=== PATIENT | female | born 1940 | race Caucasian/White ===

== ENCOUNTER 2020-08-13 10:04 | Outpatient (REF) | payer MEDICARE, OTHER, SELFPAY ==
--- NOTE | 2020-08-13 | US_ITS ---
EXAMINATION: US EXTRACRANIAL CAROTID DUPLEX, BILATERAL CLINICAL INFORMATION: This is an 80-year-old female with history of hypertension. Carotid artery disease. COMPARISON: Comparison is made to a previous study dated 06/27/2019 which demonstrated 0-49% right internal carotid artery stenosis and 50-79% left internal carotid artery stenosis. It also showed retrograde flow in the left vertebral artery. TECHNIQUE: Real-time ultrasound and Doppler techniques (integrating B-mode 2-D vascular images, Doppler spectral analysis and color-flow Doppler imaging) were utilized to interrogate the extracranial carotid arteries, the vertebral arteries and proximal subclavian arteries bilaterally. The degree of stenosis is determined by criteria similar to NASCET. FINDINGS: Right Side: 1. There is minimal atherosclerotic plaque seen in the bifurcation/proximal ICA region. 2. The common carotid artery PSV proximally is 130 cm/s and distally 116 cm/s. 3. The proximal internal carotid artery velocities are 109 cm/s systolic and 18 cm/s diastolic. 4. The proximal external carotid artery PSV is 135 cm/s. This does not represent a hemodynamically significant stenosis. 5. The vertebral artery shows antegrade flow. 6. The subclavian artery waveforms are stenotic with an elevated velocity of 335 cm/s. Left Side: 1. There is minimal atherosclerotic plaque seen in the bifurcation/proximal ICA region. 2. The common carotid artery PSV proximally is 104 cm/s and distally 101 cm/s. 3. The proximal internal carotid artery velocities are 151 cm/s systolic and 31 cm/s diastolic. 4. The proximal external carotid artery PSV is 360 cm/s.. This is consistent with hemodynamically significant stenosis. 5. The vertebral artery shows antegrade flow. 6. The subclavian artery waveforms are mildly stenotic but the velocity is still within the normal limits. US/US carotid duplex BI IMPRESSION: 1. RIGHT: Minimal, non-hemodynamically significant stenosis of the proximal right internal carotid artery corresponding to a 0-49% stenosis by velocity criteria. The category severity of disease appears unchanged. 2. LEFT: Moderate, hemodynamically significant stenosis of the proximal left internal carotid artery corresponding to a 50-79% stenosis by velocity criteria. The category severity of disease appears unchanged. 3. There is no change in the stenotic left external carotid artery. 4. There is a hemodynamically significant stenosis in the right subclavian artery which now is apparent. However, the vertebral arteries appear antegrade on the current study. Previously, there was retrograde flow in the left vertebral artery.
== END 2020-08-13 10:05 | disposition home or self-care (01) ==
LOC: HO.US 10:04
PROVIDERS: PCP Internal Medicine; Visit Provider Surgery Vascular Surgery
DX: I65.23 Occlusion and stenosis of bilateral carotid arteries (principal)
CPT/HCPCS: 93880

== ENCOUNTER → 2020-08-27 10:40 | Outpatient (BNVA) | payer MEDICARE, OTHER, SELFPAY | PROVIDERS: PCP Internal Medicine; Visit Provider Surgery Vascular Surgery | DX: I65.23 Occlusion and stenosis of bilateral carotid arteries (principal); I83.11 Varicose veins of right lower extremity with inflammation | CPT/HCPCS: Q3014 ==